=== PATIENT | female | born 1950 | race Caucasian/White ===

== ENCOUNTER → 2020-12-07 | Outpatient (CLI) | payer OTHER, BC ==
[~2020-12-07] MED LIST: ALTACE2.5 MG PO; DILTIAZEM 24HR120 M1 PO; DILTIAZEM ER180 M2 PO; ELIQUIS5 MG PO; FOLIC ACID0.4 MG PO; HYDROCHLOROTH12.5 M2 PO; LIPITOR10 MG PO; TAMBOCOR 100 M100 MG PO; VITAMIN D325 MC3 PO
[2020-12-07 09:58] LABS: HEMATOCRIT 41.1 % (37.0-47.0); HEMOGLOBIN 13.7 gm/dL (12.0-15.0); LYMPHOCYTES 18.2 % (24.0-44.0); MCHC 33.3 g/dL (28.0-37.0); MCV 90.2 fL (80.0-100.0); MONOCYTES 9.2 % (1.0-8.0); PLATELET COUNT 320 thou/uL (150-400); POLYS 70.6 % (36.0-66.0); RBC 4.56 mil/uL (4.20-5.00); RDW 13.9 % (10.5-14.5); WBC 8.5 thou/uL (4.0-11.0)
[2020-12-07 10:12] LABS: ALBUMIN 3.8 g/dL (3.4-5.0); CALCIUM 9.6 mg/dL (8.5-10.1); POTASSIUM 4.1 mmol/L (3.5-5.1); TOTAL BILIRUBIN 0.5 mg/dL (0.2-1.0); TOTAL PROTEIN 7.6 g/dL (6.4-8.2)
== END ==
LOC: LAB 09:09 → CAT 15:29
PROVIDERS: ATTEND Internal Medicine Cardiovascular Disease
DX: I25.10 Atherosclerotic heart disease of native coronary artery without angina pectoris (principal); E07.89 Other specified disorders of thyroid; M47.814 Spondylosis without myelopathy or radiculopathy, thoracic region; I48.91 Unspecified atrial fibrillation

== ENCOUNTER 2020-12-09 06:22 | Observation (INO) | payer OTHER, BC ==
[~2020-12-09] VITALS: Ht 175.3 cm; Wt 107.0 kg
--- NOTE | ~2020-12-09 | P ---
[facility] [place] [address] [place] [address] PROCEDURE REPORT Name: JIMMY MCFADDEN Room #: 206-P [facility] Lucy M.RVargas#: [id number] Admission: 12/09/20 Attend Phys: Evelio Vogel MD Discharge: 12/10/20 Date of : 48 Report #: [id number] THIS REPORT FOR: cc: NO FAMILY PHYSICIAN or PCP NO FAMILY PHYSICIAN or PCP Evelio Vogel MD ~ DOC #: [id number] Evelio Vogel MD DATE OF SERVICE: 12/09/2020 PREOPERATIVE DIAGNOSIS: Atrial fibrillation/atrial flutter. POSTOPERATIVE DIAGNOSIS: Atrial fibrillation/atrial flutter. PROCEDURES PERFORMED: 1. Atrial fibrillation ablation -- CPT code 30442. 2. A 3D mapping. CPT code 69932. 3. Intracardiac echo, CPT code 26432. 4. Focal ablation -- CPT code 07048. 6. Second pathway ablation -- CPT code 24394. DESCRIPTION OF PROCEDURE: The patient was brought to the EP laboratory in fasting and sedated state, prepped and draped in a sterile fashion, obtained access in the right femoral vein x 3, placing a 8, 9 and 7-[place] short sheath. Under fluoroscopy, I placed a decapolar catheter easily in the coronary sinus and ICE catheter in the right atrium. Using intracardiac ultrasound, I verified that the patient had 2 left and 2 right pulmonary veins. This was merged with the patient's cardiac CT scan. The patient was systemically heparinized and a transseptal was performed using an SL1 sheath and a [place] needle. The transseptal was straightforward and then I decided to exchange over for the cryosheath. I did have some difficulty advancing the cryosheath in the right groin, so I did dilate with a 14-[place] sheath and then I was able to advance through this easily. I then advanced the cryosheath into the left atrium and placed the Lasso catheter in the left atrium and created a 3D geometry and voltage map of the left atrium. Next, I started by isolating the pulmonary veins. The left superior pulmonary vein underwent a 4-minute freeze and isolated at 43 seconds. The left inferior pulmonary vein underwent a 4-minute followed by 3-minute freeze and was noted to be isolated. The right superior pulmonary vein underwent a 140 second freeze isolating within about 30 seconds. Temps were cold and developed phrenic nerve weakening so I came off and this resolved quickly. The right inferior pulmonary vein underwent a 4-minute freeze and isolated at 60 seconds. The patient remained in atrial fibrillation and I decided to perform a roofline. I performed 4 freezes anchored from the left superior pulmonary vein, each of 3 minutes duration. Next, a repeat voltage map was created and this showed that we had essentially isolated all the pulmonary veins in the posterior wall. A DC cardioversion was performed and EP study was [address] [address] PROCEDURE REPORT Name: JIMMY MCFADDEN Room #: 206-P JOSE Ayala MVargasRVargas#: [id number] Admission: 12/09/20 Attend Phys: Evelio Vogel MD Discharge: 12/10/20 Date of : 48 Report #: [id number] performed. AV block was noted at 360 milliseconds. With aggressive atrial pacing, I did induce atrial flutter with a cycle length of 240 milliseconds. Atrial flutter ablation. The patient was prepped for atrial flutter ablation. I utilized a ramp sheath and an 8 mm ablation catheter. Ablation was performed at 70 ray and 60 degrees and post-ablation, the transisthmus conduction time had improved to 160 milliseconds. Post-ablation, the patient was in sinus rhythm, sinus cycle length of 790 milliseconds, WA interval 150 milliseconds, QRS duration 85 milliseconds, QT interval 385 milliseconds. CONCLUSION: 1. Successful AFib ablation with isolation of the pulmonary veins. 2. Successful posterior wall isolation. 3. Successful atrial flutter ablation with bidirectional block. Evelio Vogel MD [facility] By: [id number] Evelio Vogel MD /nt
[2020-12-09 07:51] VITALS: BP 147/96
[2020-12-09 07:54] LABS: ABSOLUTE NEUTROPHILS 5.2 thou/uL (1.4-8.2); BASOPHILS 1.5 % (0.0-2.0); EOSINOPHILS 1.1 % (0.0-3.0); HEMATOCRIT 41.1 % (37.0-47.0); HEMOGLOBIN 13.5 gm/dL (12.0-15.0); LYMPHOCYTES 21.5 % (24.0-44.0); MCH 29.8 pg (26.0-34.0); MCV 90.4 fL (80.0-100.0); MONOCYTES 9.4 % (1.0-8.0); PLATELET COUNT 314 thou/uL (150-400); POLYS 66.5 % (36.0-66.0); RBC 4.54 mil/uL (4.20-5.00); RDW 14.3 % (10.5-14.5); WBC 7.8 thou/uL (4.0-11.0)
[2020-12-09] MEDS ORDERED: ELIQUIS5 MG PO (07:57)
[2020-12-09] MEDS ORDERED: LIPITOR10 MG PO (07:58)
[2020-12-09] MEDS ORDERED: VITAMIN D325 MC3 PO (07:58)
[2020-12-09] MEDS ORDERED: FOLIC ACID0.4 MG PO (07:59)
[2020-12-09] MEDS ORDERED: DILTIAZEM ER180 M2 PO (07:59)
[2020-12-09] MEDS ORDERED: HYDROCHLOROTH12.5 M2 PO (08:00)
[2020-12-09] MEDS ORDERED: ALTACE2.5 MG PO (08:00)
[2020-12-09 08:19] LABS: APTT 27.3 Seconds (24.5-32.8); PROTIME 10.6 Seconds (9.3-11.4)
--- NOTE | 2020-12-09 09:23 | TEE ---
[facility] [address] [place] [address] TRANSESOPHAGEAL ECHOCARDIOGRAM Name: JIMMY MCFADDEN Room #: REG BIANCA Manzo.#: [id number] Admission: 12/09/20 Attend Phys: Evelio Vogel MD Discharge: Date of : 48 Report #: [id number] THIS REPORT FOR: cc: NO FAMILY PHYSICIAN or PCP NO FAMILY PHYSICIAN or PCP Ghassan Jimenez MD [facility] ~ APPROVED REPORT Study performed: 12/09/2020 08:32:23 EXAM: Transesophageal Echocardiogram Patient Location: Outpatient/EP lab HR: 87 bpm BP: 151/87 mmHg Rhythm: Atrial Fibrillation Other Information Study Quality: Good Indications Atrial Fibrillation Pre-ablation. Procedure After obtaining informed consent, patient underwent transesophageal echo in the EP Lab. Type of Sedation : General Anesthesia Transesophageal probe was inserted and advanced into esophagus without difficulty by Ghassan Jimenez MD. Echo enhancement indication: R/O Septal defect. Echo enhancement agent administered: Agitated Saline The PRO was performed without complications. Throughout the procedure, the blood pressure, pulse oximetry, cardiac rhythm, and rate were monitored. The patient tolerated the procedure without adverse effects. Recovery from conscious sedation was uneventful and vital signs were stable. Left Ventricle The left ventricle is normal size. There is normal LV segmental wall motion. Left ventricular systolic function is normal. LVEF is 50-55%. Not assessed Right Ventricle [facility] [address] [place] [address] TRANSESOPHAGEAL ECHOCARDIOGRAM Name: JIMMY MCFADDEN Room #: REG CL [facility].#: [id number] Admission: 12/09/20 Attend Phys: Evelio Vogel Discharge: Date of : 48 Report #: [id number] The right ventricle is normal size. The right ventricular systolic function is normal. Atria Biatrial enlargement. No shunting noted with contrast bubble injection. No thrombus is visualized in the left atrium or appendage. Aortic Valve The aortic valve is normal in structure, trileaflet. No aortic regurgitation is present. There is no aortic valvular stenosis. Mitral Valve The mitral valve is normal in structure. Mild mitral regurgitation. No evidence of mitral valve stenosis. Tricuspid Valve The tricuspid valve is normal in structure. Trace tricuspid regurgitation. Pulmonic Valve The pulmonary valve is normal in structure. There is no pulmonic valvular regurgitation. Great Vessels The aortic root is normal in size. IVC is normal in size and collapses >50% with inspiration. Pericardium There is no pericardial effusion. <Conclusion> Left ventricular systolic function is normal. There is normal LV segmental wall motion. LVEF is 50-55%. Biatrial enlargement. No shunting by contrast bubble injection. No thrombus in the left atrium or appendage. The aortic valve is normal in structure, trileaflet. No aortic regurgitation or stenosis The mitral valve is normal in structure. Mild mitral [facility] [address] [place] [address] TRANSESOPHAGEAL ECHOCARDIOGRAM Name: JIMMY MCFADDEN Room #: REG Charley#: [id number] Admission: 12/09/20 Attend Phys: Evelio Vogel Discharge: Date of : 48 Report #: [id number] regurgitation. There is no pericardial effusion. <ELECTRONICALLY SIGNED> By: Ghassan Jimenez MD, FACC 12/09/20921 1 1 Ghassan Jimenez MD, FACC /INF
--- NOTE | 2020-12-09 18:05 | NUR ---
[age] YEAR OLD FEMALE ADMITTED TO 2N ROOM 206 AFTER CARDIAC ABLATION. PT ALERT AND ORIENTED TIMES FOUR. VSS, SR ON TELE, IVF INFUSING PER ORDER. PT DENIES PAIN/SOA. RIGHT GROIN SITE SOFT AND INTACT ON ADMISSION TO UNIT. FAMILY AT BEDSIDE WILL CONTINUE TO MONITOR.
[2020-12-10] VITALS: BP 162/92
[2020-12-10 03:20] VITALS: BP 147/71
--- NOTE | 2020-12-10 04:42 | NUR ---
PT IS UP WITH ASSISTANCE AT THIS PM SHIFT. GROIN SITE SMALL AMOUNT OF BLOOD NOTED. LUNGS ARE CLEAR ON ROOM AIR. ABDOMEN IS ROUND AND SOFT. DENIES ANY PAIN WHEN ASKED. CALL LIGHT WITHIN REACH IF NEEDS ANY ASSISTANCE. VITALS STALBE . NO ISSUES OR CONCERNS NOTED AT THIS TIME.
[2020-12-10] MEDS ORDERED: DILTIAZEM 24HR120 M1 PO (07:13)
[2020-12-10] MEDS ORDERED: TAMBOCOR 100 M100 MG PO (07:13)
[2020-12-10 07:50] VITALS: BP 141/68
[2020-12-10 11:40] VITALS: BP 148/73
[2020-12-10 15:16] VITALS: BP 148/73
[2020-12-10 15:50] VITALS: BP 156/86
== END 2020-12-10 16:18 | disposition home or self-care (01) ==
LOC: CATH → 2N 12:42
PROVIDERS: ADMIT Internal Medicine Cardiovascular Disease; ATTEND Internal Medicine Cardiovascular Disease
DX: I48.91 Unspecified atrial fibrillation (principal); I48.92 Unspecified atrial flutter; I10 Essential (primary) hypertension; E78.5 Hyperlipidemia, unspecified; J45.909 Unspecified asthma, uncomplicated; E66.9 Obesity, unspecified; Z68.34 Body mass index [BMI] 34.0-34.9, adult; Z79.899 Other long term (current) drug therapy
CPT/HCPCS: 62110; 62900; 65020; 70005